=== PATIENT | female | born 1995 | race Caucasian/White ===

== ENCOUNTER 2017-03-12 13:22 | Emergency (ER) | payer OTHER ==
[~2017-03-12] VITALS: Ht 170.2 cm; Wt 63.8 kg
[2017-03-12 13:33] VITALS: TEMP 37.1; Ht 170.2 cm; Wt 63.8 kg
[2017-03-12] MEDS ORDERED: BCPILLS PO (13:48)
--- NOTE | 2017-03-12 14:07 | DIAGNOSTIC IMAGING REPORT ---
CT SCAN OF THE BRAIN WITHOUT IV CONTRAST CLINICAL HISTORY: Head injury. Headache. COMPARISON STUDY: No priors. TECHNIQUE: Unenhanced axial CT scan of the brain is performed from the vertex to the skull base. A dose lowering technique was utilized adhering to the principles of ALARA. CT DOSE: 614.27 mGy.cm FINDINGS: Brain parenchyma: The brain parenchyma is normal in appearance. There is no hemorrhage, mass effect, or evidence of acute territorial ischemia by CT criteria. Nunez-white matter is preserved. No extra-axial fluid collection is seen. Ventricles, sulci, cisterns: Normal in configuration. Intracranial vasculature: The visualized intracranial vasculature at the skull base is normal in appearance. Calvarium: There is no depressed calvarial fracture. Sinuses and mastoids: The visualized paranasal sinuses are clear. The mastoid air cells are well pneumatized. Orbits: The bony orbits are grossly intact. IMPRESSION: No acute intracranial abnormality. Electronically signed by: Mark Live M.D. 03/12/2017 2:06 PM Dictated Date/Time: 03/12/2017 2:05 PM
--- NOTE | 2017-03-12 14:19 | EMERGENCY ROOM VISIT NOTE ---
History First contact with patient: 13:38 Chief Complaint: HEAD INJURY (MINOR) Stated Complaint: BLURRED VISION, HEADACHE, NAUSEA History of Present Illness The patient is a 21 year old female who presents to the Emergency Room with complaints of head injury. The patient states that she was sliding on Sunday night and fell off her sled and rolled down a steep hill striking her head. The patient is now complaining of a persistent headache. She also admits to tunnel vision mainly in her left eye intermittently. She admits to nausea but denies any vomiting. The patient denies any dizziness. The patient denies any initial loss of consciousness. The patient denies any prior head injuries. The patient has not taken anything for the headache. She states she does not like to take medications. Review of Systems 10 system review was performed and was negative unless stated otherwise history of present illness. Past Medical/Surgical History Hernia repair, bone spur removal Social History Smoking Status: Never Smoker Alcohol Use: none Drug Use: none Marital Status: single Housing Status: lives with family Occupation Status: employed, [employer] student Current/Historical Medications Scheduled Control Pills ( Control Pills), 1 TAB PO DAILY Physical Exam Vital Signs Date Time Temp Pulse Resp B/P (MAP) Pulse Ox O2 Delivery O2 Flow Rate FiO2 03/12/17 13:33 37.1 104 18 117/77 99 Room Air Physical Exam GENERAL: 21-year-old white female appears in no acute distress. MENTAL Status: Alert and oriented 3. HEAD: Atraumatic, nontender to palpation throughout. EYES: PERRLA. EOMs intact. EARS: Canals clear. TMs without hemotympanum NECK: Supple, no lymphadenopathy noted. No carotid bruits noted. LUNGS: Clear auscultation without wheezes rales or rhonchi. CARDIAC: Regular rate and rhythm without murmur. Pulses is full and equal throughout. NEURO:Cranial nerves two through 12 intact. Cerebellar function intact with [id number]. Fine motor intact with alternating finger motions. Medical Decision & Procedures ER Provider Diagnostic Interpretation: CT SCAN OF THE BRAIN WITHOUT IV CONTRAST CLINICAL HISTORY: Head injury. Headache. COMPARISON STUDY: No priors. TECHNIQUE: Unenhanced axial CT scan of the brain is performed from the vertex to the skull base. A dose lowering technique was utilized adhering to the principles of ALARA. CT DOSE: 614.27 mGy.cm FINDINGS: Brain parenchyma: The brain parenchyma is normal in appearance. There is no hemorrhage, mass effect, or evidence of acute territorial ischemia by CT criteria. Nunez-white matter is preserved. No extra-axial fluid collection is seen. Ventricles, sulci, cisterns: Normal in configuration. Intracranial vasculature: The visualized intracranial vasculature at the skull base is normal in appearance. Calvarium: There is no depressed calvarial fracture. Sinuses and mastoids: The visualized paranasal sinuses are clear. The mastoid air cells are well pneumatized. Orbits: The bony orbits are grossly intact. IMPRESSION: No acute intracranial abnormality. Electronically signed by: Mark Live M.D. 03/12/2017 2:06 PM Dictated Date/Time: 03/12/2017 2:05 PM ED Course The patient was evaluated. Urine dip for was negative. CT the head was ordered interpreted by the radiologist as above without any acute findings. The patient was informed of the findings. I offered the patient home antinausea medication but she declined. The patient was discharged home in stable condition. Medical Decision Differential includes: Acute intracranial bleed, trauma, meningitis, encephalitis, increased intracranial pressure, mass or mass effect, facial or dental infection, temporal arteritis, CVA, TIA, acute hypertensive emergency, sinusitis, carbon monoxide exposure. [place] Drug Monitoring [place] Search Results: patient reviewed within database Head Trauma GCS Score: 15 Medication Reconcilliation Current Medication List: was personally reviewed by me Blood Pressure Screening Patient's blood pressure: Normal blood pressure Impression Primary Impression: Closed head injury Departure Information Dispostion Home / Self-Care Condition GOOD Referrals Aly Pepper M.D. ([facility]) (PCP) Forms HOME CARE DOCUMENTATION FORM, IMPORTANT VISIT INFORMATION Patient Instructions ED Head Injury Closed, [facility] Additional Instructions Avoid any contact sports for 2 weeks. Tylenol as needed for headache. Read head injury handout instructions. Any worsening of symptoms, return to ER. Problem Qualifiers Primary Impression: Closed head injury Encounter type: initial encounter Qualified Codes: S09.90XA - Unspecified injury of head, initial encounter
[2017-03-12 14:31] VITALS: BP 113/79; PULSE 106; O2SAT 97
== END 2017-03-12 14:31 | disposition home or self-care (01) ==
LOC: C.EDB 13:24 → C.EDD 14:31
DX: S09.90XA Unspecified injury of head, initial encounter (principal); W22.8XXA Striking against or struck by other objects, initial encounter; Y92.89 Other specified places as the place of occurrence of the external cause; Y93.23 Activity, snow (alpine) (downhill) skiing, snowboarding, sledding, tobogganing and snow tubing; Z79.3 Long term (current) use of hormonal contraceptives

== ENCOUNTER 2023-05-17 05:18 | Inpatient (IN) ==
[2023-05-17] MEDS ORDERED: LIDOCAINE 1% LOCAL 20 ML VIAL INFIL PRN (06:04)
[2023-05-17] MEDS: LACTATED RINGER'S 1,000 ML IV PRN (06:35)
[2023-05-17 06:48] LABS: Hematocrit (blood only) 40.5 % (37.0-47.0); Hemoglobin 13.6 g/dl (12.0-16.0); Mean Corpuscular Hemoglobin 27.9 pg (25.0-34.0); Mean Corpuscular Hgb Conc 33.6 g/dL (32.0-36.0); Mean Corpuscular Volume 83.2 fL (80.0-100.0); Mean Platelet Volume 11.2 fL (9.4-12.4); Platelet Count 180 K/uL (130-400); RDW Coefficient of Variation 13.3 % (11.5-14.5); RDW Standard Deviation 40.3 fL (36.4-46.3); Red Blood Count 4.87 M/uL (4.20-5.40); White Blood Count 12.32 K/ul (4.8-10.8)
--- NOTE | 2023-05-17 07:31 | History & Physical Report ---
Date of Service May 17, 2023 Assessment & Plan (1) Normal labor: Plan admit, iv, labs. arom to see if helps labor pattern. discussed pain mgmt. fhts categ 1. bps ok. Admission and Anticipated Discharge Date Admission Date: May 17, 2023 History of Present Illness Chief Complaint: regular contractions Primary Care Provider: Shantelle Garcia 27yo at 39wk ega presents to L&D with cc of regular ctx. No rom, no vb. +FM. Cx per nurse 8cm. PNC c/b 1. labile bps previously without dx of gest htn PNL rh pos, ri, gbs neg OBH: g1 GYNH: nl paps no stds. Allergies Allergy/AdvReac Type Severity Reaction Status Date / Time oxycodone Allergy Unknown GI SYMPTOMS Verified 05/17/23 05:40 Home Medications Medication Instructions Recorded Confirmed Type buspirone 30 mg tablet 30 mg PO DAILY 10/09/22 05/17/23 History diphenhydramine HCl [Unisom 1 tab PO DAILY 10/09/22 05/17/23 History SleepGels] vit 168-iron 27 mg-folic 1 cap PO DAILY 10/09/22 05/17/23 History acid 800 mcg-omega3 235 mg capsule (One-A-Day -1) Patient History Medical History (Updated 05/17/23 @ 07:34 by Keke Waller MD, FACOG) Bone spur removal No pertinent past medical history Surgical History (Updated 05/17/23 @ 05:39 by Marge Rolon RN) Hx of hernia repair S/P wisdom tooth extraction Family History Other Heart disease Ovarian cancer Thyroid disease Social History Smoking Status: Never smoker Second Hand Exposure: No; Do You Dip or Chew Tobacco: No; Hx Alcohol Use: No Hx Substance Use: No Preferred Language: Montenegrin Communication Ability: Effective Extension Division Director Required: No Beliefs That Will Affect Care: None marital status: marital status details: Cl (35) [phone] Current Living Situation: Spouse Current Living Situation Comment: house with and step kids current occupational status: employed current occupation: Substance abuse counselor Other Information That Helps Us Care for You: No Feels Safe at Home: Yes Safety Concerns: Feels Safe At This Time Assistive Devices: Glasses Review of Systems as per Subjective / HPI Physical Exam Constitutional: WD/WN, vitals as above Respiratory: normal respiratory effort, lungs clear to auscultation Cardiovascular: Rate/Rhythm: regular rate and regular rhythm Gastrointestinal (Abdomen): soft gravid nt efw 7-8# Musculoskeletal: no edema nontender calves Neurologic: grossly normal Psychiatric: A+Ox3, euthymic affect Genitourinary: Manual OB Exam: + cervical dilation 7 cm, + cervical effacement 90%, + station -1 and + amniotic fluid (arom) clear Results & Data Vital Signs (Past 12 Hours) Vital Signs Temp Pulse Resp BP O2 Del Method 05/17/23 07:20 99.0 F 20 05/17/23 07:20 83 130/71 05/17/23 05:55 98.6 F 91 H 18 135/84 05/17/23 05:42 18 Room Air Code Status & VTE Plan VTE Prophylaxis Plan VTE Prophylaxis will be ordered: No Reason for no VTE drug order: Treatment not indicated Coding Level of Care Code None Diagnoses Normal labor O80; Z37.9
[2023-05-17] MEDS: BUPIVACAINE 0.25% PF 30 ML VIAL ONE (07:53)
[2023-05-17] MEDS: SODIUM CHLORIDE 0.9% PF INJ 10 ML VIAL ONE (07:53)
[2023-05-17] MEDS: LIDOCAINE 2%/EPINEPHRINE 1:200,000 20 ML PF ONE (07:53)
[2023-05-17] MEDS: fentaNYL citrate PF 100 MCG/2 ML VIAL ONE (07:54)
[2023-05-17] MEDS: fentANYL 2 MCG/ML BUPIVacaine 0.125%-NSS 100ML BAG ONE (07:57)
[2023-05-17] MEDS ORDERED: NALOXONE HCL 0.4 MG/1 ML VIAL/CARP IV PRN (08:01)
[2023-05-17] MEDS ORDERED: BUPIVACAINE 0.25% PF 30 ML VIAL EPI PRN (08:01)
[2023-05-17] MEDS ORDERED: NALBUPHINE HCL 5 MG in SYRINGE 0 ML IV PRN (08:01)
[2023-05-17] MEDS ORDERED: ONDANSETRON INJ 2 MG/ML 2 ML VIAL IV PRN (08:01)
[2023-05-17] MEDS ORDERED: SODIUM CHLORIDE 0.9% PF INJ 10 ML VIAL EPI PRN (08:01)
[2023-05-17] MEDS ORDERED: LIDOCAINE 2% MPF LOCAL 5 ML VIAL EPI PRN (08:01)
[2023-05-17] MEDS ORDERED: diphenhydrAMINE 50 MG/ML VIAL IV PRN (08:01)
[2023-05-17] MEDS ORDERED: fentaNYL citrate PF 100 MCG/2 ML VIAL EPI PRN (08:01)
[2023-05-17] MEDS ORDERED: ePHEDrine sulfate 50 MG/ML AMP IV PRN (08:01)
[2023-05-17] MEDS ORDERED: NALOXONE HCL 1 MG in SODIUM CHLORIDE 0.9% 1,000 ML IV PRN (08:01)
[2023-05-17] MEDS ORDERED: ROPIVACAINE 0.5% PF 5 MG/ML 20 ML VIAL EPI PRN (08:01)
--- NOTE | 2023-05-17 08:01 | Anesthesiology Consultation ---
Date of Service May 17, 2023 Assessment & Plan Chart Review Chart Review: Patient NOT seen in Pre Admission Testing and Acceptable Risk for Labor Epidural Consults Requested none ASA ASA2 Proposed Anesthesia Anesthesia Type: Labor Epidural Risk / Benefits Reviewed With: PT / POA / Parent / Guardian, Accepts Plan and Informed Consent Obtained History Height/Weight Height: 5 ft 7 in Weight: 84.822 kg Allergies Allergy/AdvReac Type Severity Reaction Status Date / Time oxycodone Allergy Unknown GI SYMPTOMS Verified 05/17/23 05:40 Medications Home Medications Medication Instructions Recorded Confirmed Last Taken buspirone 30 mg tablet 30 mg PO DAILY 10/09/22 05/17/23 05/16/23 23:00 diphenhydramine HCl [Unisom 1 tab PO DAILY 10/09/22 05/17/23 05/16/23 SleepGels] vit 168-iron 27 mg-folic 1 cap PO DAILY 10/09/22 05/17/23 05/16/23 acid 800 mcg-omega3 235 mg capsule (One-A-Day -1) Active Medications Generic Name Dose Route Start Last Admin Trade Name Freq PRN Reason Stop Dose Admin Lactated Ringer's 1,000 mls @ 125 mls/hr 05/17/23 06:04 05/17/23 07:53 Lr IV 05/19/23 06:03 999 mls/hr .Q8H PRN Administration L&D Protocol Protocol Past Medical History Medical History (Updated 05/17/23 @ 07:34 by Keke Waller MD, FACOG) Bone spur removal No pertinent past medical history Exercise / Class Metabolic Activity II 4-5 Yardwork/Stairs/Walk up hill Past Family History Family History Other Heart disease Ovarian cancer Thyroid disease Past Surgical History Surgical History (Updated 05/17/23 @ 05:39 by Marge Rolon RN) Hx of hernia repair S/P wisdom tooth extraction Past Anesthesia History No Hx of Anesthesia Complications and No Family Hx of Anesthesia Complications History of PONV No Hx of PONV and No Hx of Motion Sickness Social History Smoking Status: Never smoker Do You Dip or Chew Tobacco: No Hx Alcohol Use: No Hx Substance Use: No substance use type: does not use Physical Exam Vital Signs Last Vital Signs Temp 37.2 C 03/28/24 07:20 Pulse 79 05/17/23 07:56 Resp 20 05/17/23 07:20 BP 114/57 L 05/17/23 07:56 Pulse Ox 98 05/17/23 07:54 O2 Del Method Room Air 05/17/23 05:42 ENMT Mouth: no dentition abnormality Thyromental Distance: > or= 3.5 Finger Breadths Mallampati Class: II Neck normal visual inspection Respiratory normal respiratory effort Auscultation: lungs clear to auscultation bilaterally Cardiovascular Rate/Rhythm: regular rate and regular rhythm Psychiatric Orientation: alert Testing Laboratory Results 05/17/23 06:14
--- NOTE | 2023-05-17 11:51 | Labor Progress Brief Note ---
Date of Service May 17, 2023 Patient admitted over the evening by the previous physician in active labor she was 7 cm at 7 this morning and checked her at 1150 and she is 7 to 8 cm cervix is 100% effaced -1 station contractions are every 2 to 3 minutes at this stage I do not think I can increase or start Pitocin as the contractions are too close together will recheck in several hours Assessment & Plan Admission and Anticipated Discharge Date Admission Date: May 17, 2023 Results & Data Vital Signs (Past 12 Hours) Vital Signs Temp Pulse Resp BP Pulse Ox O2 Del Method 05/17/23 11:48 101 H 93 05/17/23 11:45 92 H 116/64 05/17/23 11:44 91 H 99 05/17/23 11:39 95 H 98 05/17/23 11:34 109 H 98 05/17/23 11:32 88 107/61 05/17/23 11:29 93 H 97 05/17/23 11:24 99 H 97 05/17/23 11:19 86 98 05/17/23 11:16 106 H 94 05/17/23 11:14 103 H 106/61 98 05/17/23 11:09 98 H 97 05/17/23 11:04 111 H 97 05/17/23 11:01 94 H 116/59 L 05/17/23 11:00 18 05/17/23 11:00 97.5 F L 18 05/17/23 10:59 113 H 97 05/17/23 10:54 108 H 97 05/17/23 10:49 104 H 97 05/17/23 10:45 113 H 108/66 05/17/23 10:44 96 H 97 05/17/23 10:39 97 H 99 05/17/23 10:34 108 H 99 05/17/23 10:31 98 H 116/67 05/17/23 10:29 103 H 99 05/17/23 10:24 105 H 98 05/17/23 10:19 107 H 99 05/17/23 10:18 108 H 92 05/17/23 10:14 93 H 110/62 99 05/17/23 10:09 88 99 05/17/23 10:04 106 H 98 05/17/23 10:00 108 H 117/66 05/17/23 09:59 93 H 98 05/17/23 09:54 93 H 99 05/17/23 09:49 98 H 98 05/17/23 09:46 88 100/62 05/17/23 09:44 97 H 97 05/17/23 09:42 97 H 91 05/17/23 09:39 82 100 05/17/23 09:34 78 99 05/17/23 09:31 83 100/56 L 05/17/23 09:29 90 100 05/17/23 09:24 96 H 100 05/17/23 09:19 92 H 100 05/17/23 09:15 95 H 102/57 L 05/17/23 09:14 94 H 100 05/17/23 09:09 93 H 100 05/17/23 09:06 18 05/17/23 09:06 98.2 F 18 05/17/23 09:04 88 100 05/17/23 08:59 93 H 100 05/17/23 08:54 102 H 100 05/17/23 08:49 74 100 05/17/23 08:44 77 98/55 L 100 05/17/23 08:39 78 100 05/17/23 08:34 77 100 05/17/23 08:30 75 103/58 L 05/17/23 08:29 73 100 05/17/23 08:24 87 100 05/17/23 08:19 78 100 05/17/23 08:14 78 109/58 L 100 05/17/23 08:09 80 100 05/17/23 08:04 89 100 05/17/23 07:59 76 112/55 L 98 05/17/23 07:56 79 114/57 L 05/17/23 07:54 81 98 05/17/23 07:52 76 106/55 L 05/17/23 07:49 81 143/86 H 100 05/17/23 07:44 87 100 05/17/23 07:20 99.0 F 20 05/17/23 07:20 83 130/71 05/17/23 05:55 98.6 F 91 H 18 135/84 05/17/23 05:42 18 Room Air Coding Level of Care Code None
[2023-05-17] MEDS: LIDOCAINE 2%/EPINEPHRINE 1:200,000 20 ML PF EPI STA (13:45)
[2023-05-17] MEDS: fentaNYL citrate PF 100 MCG/2 ML VIAL EPI STA (13:45)
[2023-05-17] MEDS: SODIUM CHLORIDE 0.9% PF INJ 10 ML VIAL EPI STA (13:45)
[2023-05-17] MEDS: BUPIVACAINE 0.25% PF 30 ML VIAL EPI STA (13:45)
[2023-05-17] MEDS ORDERED: OXYTOCIN 30 UNITS/NSS 30 UNITS/500 ML BAG IV PRN ×2 (17:23→21:20)
[2023-05-17] MEDS: fentANYL 2 MCG/ML BUPIVacaine 0.125%-NSS 100ML BAG EPI PRN (17:30)
[2023-05-17] MEDS: ePHEDrine sulfate 50 MG/ML AMP ONE (18:37)
[2023-05-17] MEDS: OXYTOCIN 30 UNITS/NSS 30 UNITS/500 ML BAG IV PRN (21:00)
--- NOTE | 2023-05-17 21:13 | Delivery Summary ---
Vaginal Delivery Summary Date of Service May 17, 2023 Vaginal Delivery Summary and 2nd Degree LAC Spontaneous vaginal delivery the patient arrived in active labor and eventually progressed to fully dilated she had at the epidural she did have some spacing of contractions but declined Pitocin when it was suggested when she was fully dilated she pushed and delivered a baby in occiput anterior position clear fluid once delivery of the head was performed mouth and nares suctioned with bulb there was no nuchal cord gentle traction on the baby easy delivery no excessive force live vigorous female infant cord clamped delayed cord clamping was performed the patient request and clamping was done after this cord blood obtained placenta removed with traction IV Pitocin started small second-degree tear repaired with 3-0 Vicryl sponge and instrument counts correct estimated blood loss 200 mL MNPG Vaginal Delivery Charge Delivery Type Details: and 2nd Degree LAC
--- NOTE | 2023-05-17 21:16 | Anesthesia Procedure Note ---
Date of Service May 17, 2023 Anesthesia Post Epidural Note Vital Signs Vital Signs: Temp Pulse Resp BP Pulse Ox O2 Del Method 36.8 C 95 H 18 122/62 93 Room Air 05/17/23 19:09 05/17/23 21:11 05/17/23 20:45 05/17/23 21:07 05/17/23 21:11 05/17/23 19:09 Pain Intensity Lower Back: Pain Intensity: 1 Notes Mental Status: alert / awake / arousable Nausea / Vomiting: adequately controlled Pain: adequately controlled Airway Patency, RR, SpO2: stable & adequate BP & HR: stable & adequate Hydration State: stable & adequate Neuraxial Anesthesia: was administered and sensory block is resolving Anesthetic Complications: no major complications apparent and Pt Satisfied with anesthetic care Epidural: Removed without complications and With tip intact
[2023-05-17] MEDS ORDERED: HYDROCORTISONE ACETATE 25 MG SUPP PR PRN (21:20)
[2023-05-17] MEDS ORDERED: bisacodyL 10 MG SUPP PR PRN (21:20)
[2023-05-17] MEDS: BENZOCAINE 20% SPRY 85 APPLN/85 GM CAN EXT PRN (21:58)
[2023-05-17] MEDS ORDERED: Nursing to Pharmacy Communication SCH (22:00)
[2023-05-17] MEDS: DIPHTHER/TETAN/PERTUS Vaccine (Tdap, Adol/Adult) 0.5mL IM ONE (22:28)
[2023-05-17] MEDS: ACETAMINOPHEN 325 MG TAB PO PRN (23:35)
[2023-05-18] MEDS: IBUPROFEN 600 MG TAB PO PRN (02:08)
[2023-05-18 06:26] LABS: Hematocrit (blood only) 34.6 % (37.0-47.0); Hemoglobin 11.3 g/dl (12.0-16.0); Mean Corpuscular Hemoglobin 27.6 pg (25.0-34.0); Mean Corpuscular Hgb Conc 32.7 g/dL (32.0-36.0); Mean Corpuscular Volume 84.6 fL (80.0-100.0); Mean Platelet Volume 11.3 fL (9.4-12.4); Platelet Count 159 K/uL (130-400); RDW Coefficient of Variation 13.5 % (11.5-14.5); RDW Standard Deviation 41.3 fL (36.4-46.3); Red Blood Count 4.09 M/uL (4.20-5.40); White Blood Count 12.72 K/ul (4.8-10.8)
--- NOTE | 2023-05-18 06:51 | Obstetrical Progress Note ---
Date of Service <Bekah Reyes MD - Last Filed: 05/18/23 06:51> May 18, 2023 Assessment & Plan <Bekah Reyes MD - Last Filed: 05/18/23 06:51> (1) Encounter for assessment: Plan Patient with the above mentioned history and findings was evaluated at bedside and found awake, alert, oriented in all spheres, afebrile, and in no acute distress. Vital signs showed no fever and blood pressures remained stable. Her blood type is O positive and today's hemoglobin is adequate at 11.3 g/dL. Serologies are negative for GBS and patient is Rubella immune. Overall, patient is doing well clinically and meeting the desired milestone for her course. Will continue routine pp care. All questions were answered. <Jasen Ridley MD, FACOG - Last Filed: 05/18/23 07:21> (1) Encounter for assessment: Subjective <Bekah Reyes MD - Last Filed: 05/18/23 06:51> Penelope is a 27 y/o female who is now PPD # 1 following at 39 weeks. Reports feeling well overall this morning. Refers mild abdominal cramping & 2/10 pain well managed on analgesics. Voiding spontaneously. Tolerating meals overnight and able to ambulate some. Has passed gas but no bm yet. Some persistent lochia with some improvement this morning. with some difficulty. Constitutional: no fever, no chills or no sweats Denies shortness of breath or difficulty breathing Cardiovascular: no chest pain or no palpitations Breast: no breast pain Genitourinary (female): no dysuria Neurologic: no headache(s) Denies changes in vision Physical Exam <Bekah Reyes MD - Last Filed: 05/18/23 06:51> General: Alert. Oriented to person, time, and place. Afebrile. No acute distress. Cardiac: Regular rate and rhythm, no murmurs/rubs/gallops. Respiratory: Clear to auscultation bilaterally a/p, no wheezes/rales/rhonchi. No increased work of breathing. Symmetrical chest rise. No respiratory distress. Abdomen: Soft, nontender, nondistended. Bowel sounds present. Uterus: Uterine fundus firm, palpable at umbilicus. Lower Extremities: No lower extremity edema or swelling. No deep calf pain. Ambrosio's negative bilaterally. Psych: Euthymic affect. Mood and affect congruence. Regular speech rate and content. Results & Data <Bekah Reyes MD - Last Filed: 05/18/23 06:51> Vital Signs (Past 12 Hours) Vital Signs Temp Pulse Pulse Resp BP BP Pulse Ox 05/18/23 03:59 36.6 C 71 18 104/66 97 05/17/23 23:30 05/17/23 23:17 90 113/68 05/17/23 23:15 37.0 C 90 18 113/68 05/17/23 23:07 96 H 109/59 L 05/17/23 22:52 97 H 113/62 05/17/23 22:40 18 05/17/23 22:37 100 H 120/58 L 05/17/23 22:22 100 H 118/57 L 05/17/23 22:10 18 05/17/23 22:07 90 113/66 05/17/23 21:55 18 05/17/23 21:52 90 110/56 L 05/17/23 21:40 18 05/17/23 21:37 93 H 118/58 L 05/17/23 21:25 18 05/17/23 21:22 102 H 120/60 05/17/23 21:11 95 H 93 05/17/23 21:10 36.9 C 18 05/17/23 21:10 18 05/17/23 21:10 36.9 C 18 05/17/23 21:09 89 99 05/17/23 21:07 84 122/62 05/17/23 21:04 86 98 05/17/23 20:59 107 H 120/61 96 05/17/23 20:55 117 H 20 90 05/17/23 20:54 120 H 95 05/17/23 20:50 89 80 L 05/17/23 20:49 88 98 05/17/23 20:45 77 18 128/68 05/17/23 20:44 81 97 05/17/23 20:39 88 L 05/17/23 20:39 125 H 05/17/23 20:39 121 H 86 L 05/17/23 20:34 95 H 99 05/17/23 20:33 107 H 83 L 05/17/23 20:30 18 05/17/23 20:30 97 H 18 127/70 05/17/23 20:29 107 H 99 05/17/23 20:24 120 H 99 05/17/23 20:19 119 H 98 05/17/23 20:15 127 H 20 116/70 05/17/23 20:14 117 H 93 05/17/23 20:09 117 H 87 L 05/17/23 20:04 101 H 73 L 05/17/23 20:02 88 90 05/17/23 20:00 100 H 18 126/70 05/17/23 19:59 96 H 100 05/17/23 19:54 100 H 100 05/17/23 19:53 137 H 94 05/17/23 19:49 114 H 100 05/17/23 19:47 108 H 148/97 H 05/17/23 19:44 100 H 99 05/17/23 19:42 92 H 92 05/17/23 19:39 89 98 05/17/23 19:34 77 99 05/17/23 19:30 78 101/53 L 05/17/23 19:29 78 98 05/17/23 19:24 78 98 05/17/23 19:19 78 97 05/17/23 19:15 74 107/56 L 05/17/23 19:14 77 100 05/17/23 19:09 36.8 C 18 05/17/23 19:09 05/17/23 19:09 88 99 05/17/23 19:05 18 05/17/23 19:05 36.8 C 18 05/17/23 19:04 94 H 100 05/17/23 19:01 95 H 128/50 L 05/17/23 19:00 98 H 92 05/17/23 18:59 86 100 05/17/23 18:54 80 99 O2 Del Method 05/18/23 03:59 Room Air 05/17/23 23:30 Room Air 05/17/23 23:17 05/17/23 23:15 05/17/23 23:07 05/17/23 22:52 05/17/23 22:40 05/17/23 22:37 05/17/23 22:22 05/17/23 22:10 05/17/23 22:07 05/17/23 21:55 05/17/23 21:52 05/17/23 21:40 05/17/23 21:37 05/17/23 21:25 05/17/23 21:22 05/17/23 21:11 05/17/23 21:10 05/17/23 21:10 05/17/23 21:10 05/17/23 21:09 05/17/23 21:07 05/17/23 21:04 05/17/23 20:59 05/17/23 20:55 05/17/23 20:54 05/17/23 20:50 05/17/23 20:49 05/17/23 20:45 05/17/23 20:44 05/17/23 20:39 05/17/23 20:39 05/17/23 20:39 05/17/23 20:34 05/17/23 20:33 05/17/23 20:30 05/17/23 20:30 05/17/23 20:29 05/17/23 20:24 05/17/23 20:19 05/17/23 20:15 05/17/23 20:14 05/17/23 20:09 05/17/23 20:04 05/17/23 20:02 05/17/23 20:00 05/17/23 19:59 05/17/23 19:54 05/17/23 19:53 05/17/23 19:49 05/17/23 19:47 05/17/23 19:44 05/17/23 19:42 05/17/23 19:39 05/17/23 19:34 05/17/23 19:30 05/17/23 19:29 05/17/23 19:24 05/17/23 19:19 05/17/23 19:15 05/17/23 19:14 05/17/23 19:09 05/17/23 19:09 Room Air 05/17/23 19:09 05/17/23 19:05 05/17/23 19:05 05/17/23 19:04 05/17/23 19:01 05/17/23 19:00 05/17/23 18:59 05/17/23 18:54 Supervising Physician <Jasen Ridley MD, FACOG - Last Filed: 05/18/23 07:21> Co-Signing Physician Notes Resident Physician Supervision Note: I was present with Dr. Reyes during the history and exam. I discussed the case with the resident and agree with the findings and plan as documented in the note. Any exceptions or clarifications are listed here: [None] Documented By: Jasen Ridley MD, FACOG
[2023-05-18] MEDS: DOCUSATE SODIUM 100 MG CAP PO SCH (08:23)
[2023-05-18] MEDS: PRENATAL VITAMIN 1 TAB PO SCH (08:24)
[2023-05-18] MEDS: busPIRone 5 MG TAB PO SCH (08:24)
[2023-05-18] MEDS ORDERED: busPIRone 15 MG TAB PO SCH (09:00)
[2023-05-18] MEDS: bisacodyL 5 MG TABEC PO SCH (19:50)
--- NOTE | 2023-05-19 08:40 | Obstetrical Progress Note ---
Date of Service <Bekah Reyes MD - Last Filed: 05/19/23 08:40> May 19, 2023 Assessment & Plan <Bekah Reyes MD - Last Filed: 05/19/23 08:40> (1) Encounter for assessment: Plan Patient with the above mentioned history and findings was evaluated at bedside and found awake, alert, oriented in all spheres, afebrile, and in no acute distress. Vital signs showed no fever and blood pressures remained stable. Her blood type is O positive and today's hemoglobin is adequate at 11.3 g/dL. Serologies are negative for GBS and patient is Rubella immune. Overall, patient is doing well clinically and meeting the desired milestone for her course. Therefore, will discharge patient today. Patient was counselled on discharge instructions. She is to make an appointment with her OB for 6 weeks after discharge for follow up evaluation. All questions were answered. <Jessee De Luna MD - Last Filed: 05/21/23 09:11> (1) Encounter for assessment: Subjective <Bekah Reyes MD - Last Filed: 05/19/23 08:40> Penelope is a 27 y/o female who is now PPD # 2 following at 39 weeks. Reports feeling well overall this morning. Refers mild abdominal cramping & 3/10 pain well managed on analgesics. Voiding spontaneously. Tolerating meals overnight and able to ambulate some. Has passed gas but no bm yet. Some persistent lochia with some improvement this morning. . Constitutional: no fever, no chills or no sweats Denies shortness of breath or difficulty breathing Cardiovascular: no chest pain or no palpitations Breast: no breast pain Genitourinary (female): no dysuria Neurologic: no headache(s) Denies changes in vision Physical Exam <Bekah Reyes MD - Last Filed: 05/19/23 08:40> General: Alert. Oriented to person, time, and place. Afebrile. No acute distress. Cardiac: Regular rate and rhythm, no murmurs/rubs/gallops. Respiratory: Clear to auscultation bilaterally a/p, no wheezes/rales/rhonchi. No increased work of breathing. Symmetrical chest rise. No respiratory distress. Abdomen: Soft, nontender, nondistended. Bowel sounds present. Uterus: Uterine fundus firm, palpable at umbilicus. Lower Extremities: No lower extremity edema or swelling. No deep calf pain. Ambrosio's negative bilaterally. Psych: Euthymic affect. Mood and affect congruence. Regular speech rate and content. Results & Data <Bekah Reyes MD - Last Filed: 05/19/23 08:40> Vital Signs (Past 12 Hours) Vital Signs Temp Pulse Resp BP Pulse Ox O2 Del Method 05/19/23 00:37 36.5 C 72 18 115/69 98 Room Air Supervising Physician <Jessee De Luna MD - Last Filed: 05/21/23 09:11> Co-Signing Physician Notes Seen with resident and agree with the above findings and plan. Stable for discharge
== END 2023-05-19 14:45 | disposition home or self-care (01) | DRG 807 ==
LOC: OPB 05:18 → 4S1 05:26 → 4E2 23:30

== ENCOUNTER 2024-11-02 16:55 | Inpatient (IN) ==
[2024-11-02] MEDS ORDERED: LIDOCAINE 1% LOCAL 20 ML VIAL INFIL PRN (20:23)
[2024-11-02] MEDS: PENICILLIN GK 6 MU in DEXTROSE 5% 250 ML IV STA (20:45)
[2024-11-02] MEDS: LACTATED RINGER'S 1,000 ML IV PRN (20:45)
[2024-11-02 21:24] LABS: Hematocrit (blood only) 38.8 % (37.0-47.0); Hemoglobin 13.0 g/dl (12.0-16.0); Mean Corpuscular Hemoglobin 28.8 pg (25.0-34.0); Mean Corpuscular Volume 85.8 fL (80.0-100.0); Platelet Count 134 K/uL (130-400); RDW Standard Deviation 40.3 fL (36.4-46.3); Red Blood Count 4.52 M/uL (4.20-5.40); White Blood Count 8.49 K/ul (4.8-10.8)
[2024-11-02] MEDS ORDERED: LIDOCAINE 2% MPF LOCAL 5 ML VIAL EPI PRN (21:53)
[2024-11-02] MEDS ORDERED: diphenhydrAMINE 50 MG/ML VIAL IV PRN (21:53)
[2024-11-02] MEDS ORDERED: SODIUM CHLORIDE 0.9% PF INJ 10 ML VIAL EPI PRN (21:53)
[2024-11-02] MEDS ORDERED: ROPIVACAINE 0.5% PF 5 MG/ML 20 ML VIAL EPI PRN (21:53)
[2024-11-02] MEDS ORDERED: BUPIVACAINE 0.25% PF 30 ML VIAL EPI PRN (21:53)
[2024-11-02] MEDS ORDERED: NALOXONE HCL 1 MG in SODIUM CHLORIDE 0.9% 1,000 ML IV PRN (21:53)
[2024-11-02] MEDS ORDERED: ONDANSETRON INJ 2 MG/ML 2 ML VIAL IV PRN (21:53)
[2024-11-02] MEDS ORDERED: NALOXONE HCL 0.4 MG/1 ML VIAL/CARP IV PRN (21:53)
[2024-11-02] MEDS ORDERED: fentANYL 2 MCG/ML BUPIVacaine 0.125%-NSS 100ML BAG EPI PRN (21:53)
[2024-11-02] MEDS ORDERED: NALBUPHINE HCL INJ 10 MG/ML AMP IV PRN (21:53)
--- NOTE | 2024-11-02 21:53 | Anesthesiology Consultation ---
Date of Service November 02, 2024 Assessment & Plan ASA ASA2 Proposed Anesthesia Anesthesia Type: Labor Epidural Risk / Benefits Reviewed With: PT / POA / Parent / Guardian, Accepts Plan and Informed Consent Obtained History Height/Weight Height: 5 ft 7 in Weight: 81.193 kg Allergies Allergy/AdvReac Type Severity Reaction Status Date / Time oxycodone Allergy Mild Itching Verified 11/02/24 17:02 Medications Home Medications Medication Instructions Recorded Confirmed Last Taken vits no.124-ferrous fum tab 11/02/24 11/01/24 27 mg iron-folic acid 800 mcg tablet ( Vitamin) Active Medications Generic Name Dose Route Start Last Admin Trade Name Freq PRN Reason Stop Dose Admin Lactated Ringer's 1,000 mls @ 125 mls/hr 11/02/24 20:23 11/02/24 22:13 Lr IV 11/04/24 20:22 125 mls/hr .Q8H PRN Administration L&D Protocol Protocol Past Medical History Medical History Encounter for assessment Normal labor Bone spur removal No pertinent past medical history Exercise / Class Metabolic Activity II 4-5 Yardwork/Stairs/Walk up hill Past Family History Family History Grandmother (Maternal) Heart disease Ovarian cancer Grandmother (Paternal) Thyroid disease Past Surgical History Surgical History Hx of hernia repair S/P wisdom tooth extraction Past Anesthesia History No Hx of Anesthesia Complications and No Family Hx of Anesthesia Complications History of PONV No Hx of PONV and No Hx of Motion Sickness Social History Smoking Status: Never smoker Do You Dip or Chew Tobacco: No Hx Alcohol Use: No Hx Substance Use: No substance use type: does not use Review of Systems denies fever/cough/ colds/ chest pain/ SOB/ PENNY denies PENNY Physical Exam Vital Signs Last Vital Signs Temp 37.1 C 11/02/24 20:03 Pulse 94 H 11/02/24 22:27 Resp 18 11/02/24 20:03 BP 118/74 11/02/24 22:27 Pulse Ox 98 11/02/24 22:26 ENMT Mouth: no TMJ abnormality and no dentition abnormality Thyromental Distance: > or= 3.5 Finger Breadths Mallampati Class: II Neck neck extension not limited Respiratory normal respiratory effort; no respiratory distress Auscultation: lungs clear to auscultation bilaterally Cardiovascular Rate/Rhythm: regular rate and regular rhythm Neurologic moves all extremities Psychiatric Orientation: alert and oriented x 3 Testing Laboratory Results 11/02/24 20:51
[2024-11-02] MEDS: fentANYL 2 MCG/ML BUPIVacaine 0.125%-NSS 100ML BAG ONE (22:15)
[2024-11-02] MEDS: BUPIVACAINE 0.25% PF 30 ML VIAL EPI STA (22:27)
[2024-11-02] MEDS: LIDOCAINE 2%/EPINEPHRINE 1:200,000 20 ML PF EPI STA (22:27)
[2024-11-03] MEDS: PENICILLIN GK 3 MU in DEXTROSE 5% 100 ML IV PRN (00:15)
[2024-11-03] MEDS: SODIUM CHLORIDE 0.9% PF INJ 10 ML VIAL EPI STA (00:16)
[2024-11-03] MEDS: LIDOCAINE 2%/EPINEPHRINE 1:200,000 20 ML PF ONE (00:16)
[2024-11-03] MEDS: BUPIVACAINE 0.25% PF 30 ML VIAL ONE (00:16)
[2024-11-03] MEDS: SODIUM CHLORIDE 0.9% PF INJ 10 ML VIAL ONE (00:16)
[2024-11-03] MEDS: OXYTOCIN 30 UNITS/NSS 30 UNITS/500 ML BAG IV PRN (01:50)
[2024-11-03] MEDS ORDERED: HYDROCORTISONE ACETATE 25 MG SUPP PR PRN (02:01)
[2024-11-03] MEDS ORDERED: OXYTOCIN 30 UNITS/NSS 30 UNITS/500 ML BAG IV PRN (02:01)
[2024-11-03] MEDS ORDERED: BENZOCAINE 20% SPRY 85 APPLN/85 GM CAN EXT PRN (02:01)
--- NOTE | 2024-11-03 02:01 | Delivery Summary ---
Vaginal Delivery Summary Date of Service November 03, 2024 Vaginal Delivery Summary Patient progressed to 10 cm dilated, 100% effaced, +2 station push intact perineum with epidural anesthesia and delivered a viable with weight and Apgars pending. Head of the delivered without difficulty quickly followed by shoulders and body. was noted to be vigorous upon delivery and a 1 minute delayed cord clamping was initiated. Cord was then double clamped and cut remained on maternal abdomen. Cord blood obtained and attention turned to delivery the placenta which was delivered intact with three- vessel cord with gentle cord traction. On inspection of perineum vagina and cervix there is noted to be no lacerations. Sponge and instrument counts correct at the completion of the case. Both mother and stable immediate postdelivery timeframe. No complications noted and blood loss per [facility] Vaginal Delivery Charge Delivery Type Details: [facility]
--- NOTE | 2024-11-03 08:05 | Anesthesia Procedure Note ---
Date of Service November 03, 2024 Anesthesia Post Epidural Note Vital Signs Vital Signs: Temp Pulse Resp BP Pulse Ox O2 Del Method 37.4 C 63 18 107/70 97 Room Air 11/03/24 04:43 11/03/24 04:43 11/03/24 04:43 11/03/24 04:43 11/03/24 04:43 11/03/24 04:43 Notes Mental Status: alert / awake / arousable and participated in evaluation Nausea / Vomiting: adequately controlled Pain: adequately controlled Airway Patency, RR, SpO2: stable & adequate BP & HR: stable & adequate Hydration State: stable & adequate Neuraxial Anesthesia: was administered and sensory block is resolving Anesthetic Complications: no major complications apparent Epidural: Removed without complications and With tip intact
[2024-11-03] MEDS: FERROUS SULFATE 325 MG TAB PO SCH (08:24)
[2024-11-03] MEDS: PRENATAL VITAMIN 1 TAB PO SCH (08:24)
[2024-11-03] MEDS: DOCUSATE SODIUM 100 MG CAP PO SCH (08:24)
[2024-11-03] MEDS: IBUPROFEN 600 MG TAB PO PRN (10:10)
[2024-11-03] MEDS: DIPHTHER/TETAN/PERTUS Vaccine (Tdap, Adol/Adult) 0.5mL IM ONE (15:48)
[2024-11-03] MEDS: ACETAMINOPHEN 325 MG TAB PO PRN (19:15)
--- NOTE | 2024-11-04 05:53 | Hospitalist Progress Note ---
Date of Service November 04, 2024 Assessment & Plan (1) examination following vaginal delivery: Plan 29 yo post- day 1 s/p Feels well today. Vital signs stable Continue post- care Encourage ambulation and Pain controlled with ibuprofen Hgb stable Discharge home today, follow up with Dr. De Luna in 6 weeks. Admission and Anticipated Discharge Date Admission Date: November 02, 2024 Subjective 29 yo post- day 1 s/p Ambulation: ambulating normally Voiding: no voiding problems Passing Gas:: Yes Diet Tolerance:: regular diet Lochia:: Small Feeding Type:: bottle feeding Current Pain Level: Resting comfortably this AM in NAD. Denies CHAND, CP, SOB, N/V/D, LE pain/swelling. Physical Exam Physical Exam: General: patient resting comfortably, NAD, non-toxic in appearance, AA&O x 4, answers questions appropriately. Skin: warm, dry, intact HEENT: NC/AT, anicteric sclera, conjunctiva without injection, moist mucus memb ranes. Heart: +S1/S2, regular, no m/r/g Lungs: equal air entry bilaterally, no rales/rhonchi/wheezes Abd: +BS, soft, NT/ND, uterine fundus firm at umbilicus. Ext: warm, no clubbing/cyanosis or edema, Ambrosio's neg. Neuro: nonfocal, patient AA&O x 4, speech intact, no facial droop, moving all extremities on command. Results & Data Results & Data Vital Signs (Past 12 Hours) Vital Signs Temp Pulse Resp BP Pulse Ox O2 Del Method 11/03/24 23:15 36.7 C 71 16 110/70 97 Room Air 11/03/24 19:10 36.7 C 84 16 111/77 98 Room Air
--- NOTE | 2024-11-04 06:28 | Obstetrical Progress Note ---
Date of Service November 04, 2024 Assessment & Plan (1) examination following vaginal delivery: Plan 29 yo post- day 1 s/p Feels well today. Vital signs stable Continue post- care Encourage ambulation and Pain controlled with ibuprofen Hgb stable Discharge home today, follow up with Dr. De Luna in 6 weeks. Admission and Anticipated Discharge Date Admission Date: November 02, 2024 Supervising Physician Co-Signing Physician Notes Resident Physician Supervision Note: I interviewed and examined the patient. Discussed with Dr. Edwards and agree with findings and plan as documented in the note. Any exceptions or clarifications are listed here: [ ] Documented By: Marleni Dillon MD, FACOG Subjective 29 yo post- day 1 s/p Ambulation: ambulating normally Voiding: no voiding problems Passing Gas:: Yes Diet Tolerance:: regular diet Lochia:: Small Feeding Type:: breast feeding Current Pain Level: minimal Resting comfortably this AM in NAD. Denies CHAND, CP, SOB, N/V/D, LE pain/swelling. Physical Exam Physical Exam: General: patient resting comfortably, NAD, non-toxic in appearance, AA&O x 4, answers questions appropriately. Skin: warm, dry, intact HEENT: NC/AT, anicteric sclera, conjunctiva without injection, moist mucus membranes. Heart: +S1/S2, regular, no m/r/g Lungs: equal air entry bilaterally, no rales/rhonchi/wheezes Abd: +BS, soft, NT/ND, uterine fundus firm below umbilicus Ext: warm, no clubbing/cyanosis or edema, Ambrosio's neg. Neuro: nonfocal, patient AA&O x 4, speech intact, no facial droop, moving all extremities on command. Results & Data Vital Signs (Past 12 Hours) Vital Signs Temp Pulse Resp BP Pulse Ox O2 Del Method 11/03/24 23:15 36.7 C 71 16 110/70 97 Room Air 11/03/24 19:10 36.7 C 84 16 111/77 98 Room Air
[2024-11-04 10:04] VITALS: BP 114/77; PULSE 83; RESP 18; TEMP 97.9; O2SAT 98
== END 2024-11-04 11:15 | disposition home or self-care (01) | DRG 807 ==
LOC: OPB 16:55 → 4S1 16:56 → 4E2 11-03 04:24